=== PATIENT | male | born 1945 | race Asian ===

== ENCOUNTER 2016-10-25 07:46 | Emergency (ER) | payer MEDICARE ==
[~2016-10-25] VITALS: Ht 167.6 cm; Wt 74.0 kg
[2016-10-25] MEDS ORDERED: METF500T4 PO (07:52)
[2016-10-25 08:12] LABS: GLUCOSE,POINT OF CARE 209 MG/DL (70-110)
[2016-10-25 09:13] VITALS: BP 130/79
== END 2016-10-25 09:15 | disposition home or self-care (01) ==
LOC: EMS 07:53
DX: L03.113 Cellulitis of right upper limb (principal); E11.9 Type 2 diabetes mellitus without complications
CPT/HCPCS: 82962; 99283

== ENCOUNTER 2023-01-16 09:03 | Emergency (ER) | payer MEDICARE ==
[~2023-01-16] VITALS: Ht 162.6 cm; Wt 84.0 kg
[~2023-01-16 09:03] MED LIST: METF-1211 PO
[2023-01-16 09:11] VITALS: TEMP 99
[2023-01-16] MEDS ORDERED: BACITRACIN 0.9 GM PACKET OINTMENT TP ONE (09:15)
[2023-01-16] MEDS ORDERED: PERTUSS(ACELL),DIPH,TET VAC/PF 0.5 ML SYRINGE IM. ONE (09:15)
[2023-01-16] MEDS ORDERED: ACETAMINOPHEN 500 MG TABLET PO ONE (09:15)
[2023-01-16 10:30] VITALS: BP 133/60; PULSE 82; RESP 14
== END 2023-01-16 11:46 | disposition left against medical advice (07) ==
LOC: EMS 09:03
DX: S50.811A Abrasion of right forearm, initial encounter (principal); S50.812A Abrasion of left forearm, initial encounter; S80.211A Abrasion, right knee, initial encounter; S90.411A Abrasion, right great toe, initial encounter; Y08.89XA Assault by other specified means, initial encounter; Y93.89 Activity, other specified; Y92.89 Other specified places as the place of occurrence of the external cause; Y99.8 Other external cause status
CPT/HCPCS: 90471; 90715; 99284